=== PATIENT | male | born 1970 | race Two or more races ===

== ENCOUNTER 2023-09-12 11:00 | Emergency (ER) | payer MEDICAID, OTHER ==
[~2023-09-12] VITALS: Ht 165.1 cm; Wt 74.9 kg
[2023-09-12] MEDS ORDERED: MELO7.5T7 PO (15:18)
[2023-09-12 15:23] VITALS: BP 125/73; PULSE 69; RESP 18; TEMP 98; O2SAT 99
[2023-09-12] MEDS ORDERED: KETOROLAC TROMETH 30 MG/ML 1ML VIAL IM ONE (15:30)
== END 2023-09-12 15:56 | disposition home or self-care (01) ==
LOC: ER 11:00
DX: R07.89 Other chest pain (principal); M25.511 Pain in right shoulder; Z79.899 Other long term (current) drug therapy; W11.XXXA Fall on and from ladder, initial encounter; Y93.89 Activity, other specified; Y92.89 Other specified places as the place of occurrence of the external cause; Y99.8 Other external cause status
CPT/HCPCS: 71045; 96372; 99283; J1885